=== PATIENT | male | born 1945 | race Caucasian/White ===

== ENCOUNTER 2021-05-01 07:10 | Emergency (ER) | payer MEDICARE ==
--- NOTE | 2021-05-01 07:39 | EDM.PDOC ---
ED HPI GENERAL MEDICAL PROBLEM - General Chief Complaint: ENT Problem Stated Complaint: LARGE LUMP ON RIGHTSIDE OF NECK Time Seen by Provider: 05/01/21 07:12 Source of Information: Reports: Patient History Limitations: Reports: No Limitations - History of Present Illness INITIAL COMMENTS - FREE TEXT/NARRATIVE: Patient is a 76-year-old male presents today for possible abscess. Patient has little to be a enlarged lymph no on the left side of his jaw that he has had for some time but he states he has not seen anyone for. States that he felt that the mass away on his own but since has not he scheduled to see a doctor in [place] next Monday with her son. He notes that there was a fluctuant lump on top of the possible lymphocele today that had some drainage in 1 to make sure he did not need antibiotics. Denies any redness around area nausea vomiting fever chills or other complaints. 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 [No Known Home Meds] 05/01/21 [History] ED ROS GENERAL - Review of Systems Review Of Systems: See Below Constitutional: Reports: No Symptoms HEENT: Reports: No Symptoms Respiratory: Reports: No Symptoms Cardiovascular: Reports: No Symptoms Endocrine: Reports: No Symptoms GI/Abdominal: Reports: No Symptoms : Reports: No Symptoms Musculoskeletal: Reports: No Symptoms Skin: Reports: No Symptoms Neurological: Reports: No Symptoms Psychiatric: Reports: No Symptoms Hematologic/Lymphatic: Reports: No Symptoms Immunologic: Reports: No Symptoms ED EXAM, GENERAL - Physical Exam Exam: See Below Exam Limited By: No Limitations General Appearance: Alert, WD/WN, No Apparent Distress Neck: Other (Arms with no on the left jawline. Small fluctuant mass at the top is currently draining pus.) Neurological: Alert, Oriented, Normal Cognition, Normal Gait Course - Vital Signs Last Recorded V/S: Last Vital Signs Temp 97.4 F 05/01/21 07:24 Pulse 86 05/01/21 07:24 Resp 18 05/01/21 07:24 BP 189/93 H 05/01/21 07:24 Pulse Ox 98 05/01/21 07:24 - Re-Assessments/Exams Free Text/Narrative Re-Assessment/Exam: 05/01/21 08:05 Patient wound is already draining we will not I&D. Will place patient on Keflex. Patient blood pressure is elevated he has seen a doctor in a few years he has appointment coming up this Monday. Patient is asymptomatic from his elevated blood pressure. Departure - Departure Time of Disposition: 08:06 Disposition: Home, W Home Health Agency 06 Condition: Good Clinical Impression: Abscess - Discharge Information *PRESCRIPTION DRUG MONITORING PROGRAM REVIEWED*: Not Applicable *COPY OF PRESCRIPTION DRUG MONITORING REPORT IN PATIENT DULCE: Not Applicable Instructions: Skin Abscess Referrals: PCP,None [Primary Care Provider] - Forms: ED Department Discharge Additional Instructions: The following information is given to patients seen in the emergency department who are being discharged to home. This information is to outline your options for follow-up care. We provide all patients seen in our emergency department with a follow-up referral. The need for follow-up, as well as the timing and circumstances, are variable depending upon the specifics of your emergency department visit. If you don't have a primary care physician on staff, we will provide you with a referral. We always advise you to contact your personal physician following an emergency department visit to inform them of the circumstance of the visit and for follow-up with them and/or the need for any referrals to a consulting specialist. The emergency department will also refer you to a specialist when appropriate. This referral assures that you have the opportunity for follow-up care with a specialist. All of these measure are taken in an effort to provide you with optimal care, which includes your follow-up. Under all circumstances we always encourage you to contact your private physician who remains a resource for coordinating your care. When calling for follow-up care, please make the office aware that this follow-up is from your recent emergency room visit. If for any reason you are refused follow-up, please contact the [facility] Emergency Department at and asked to speak to the emergency department charge nurse. Please follow up with your primary care physician. If you do not have a primary care physician, see below: [facility] [address] [place] [id number] [facility] [address] [place] [address] You are seen today for possible abscess on top of your lymph node. We were able to help you drainage was already coming out. We will place you on antibiotics called Keflex she should take for the next 5 days. If there is becomes more swollen or red or painful please return to ED otherwise continue follow with your primary care physician. You are also found to have elevated blood pressure but you do not have any symptoms from this blood pressure we recommend you continue to follow your primary care physician to have this addressed and started on possible medication. Sepsis Event Note (ED) - Evaluation Sepsis Screening Result: No Definite Risk - Focused Exam Vital Signs: Vital Signs Temp Pulse Resp BP Pulse Ox 05/01/21 07:24 97.4 F 86 18 189/93 H 98 - Assessment/Plan Plan: Patient is a 76-year-old male who presents today for possible abscess. There is a small abscess on top of what looks to be a enlarged lymph node that is not tender. Patient scheduled to see a physician already for this enlarged lymph node. The abscess is already draining he does not need to be I&D. Patient will be placed on Keflex.
== END 2021-05-01 08:22 | disposition home health service (06) ==
LOC: MW.ED 07:10
DX: L02.11 Cutaneous abscess of neck (principal); Z91.09 Other allergy status, other than to drugs and biological substances
CPT/HCPCS: 99282